=== PATIENT | female | born 1955 | race Caucasian/White ===

== ENCOUNTER 2020-06-02 17:55 | Inpatient (IN) ==
[2020-06-02 18:37] LABS: Basophils % 0.7 %; Eosinophils # 0.2 K/mcL (0.0-0.6); Eosinophils % 5.7 %; Hematocrit 36.9 % (35.3-44.9); Hemoglobin 12.3 g/dL (11.5-15.4); Mean Corpuscular HGB Conc 33.3 g/dL (31.6-35.5); Mean Corpuscular Hemoglobin 32.3 pg (28.0-33.3); Mean Corpuscular Volume 96.9 fL (83.0-100.0); Mean Platelet Volume 11.8 fL (9.4-12.4); Monocytes # 0.4 K/mcL (0.0-1.3); Monocytes % 9.6 %; Neutrophils # 2.6 K/mcL (1.6-8.9); Platelet Count 160 K/mcL (140-400); Red Blood Count 3.81 M/mcL (3.82-4.97); Red Cell Distribution Width 12.7 % (11.5-14.5); White Blood Count 4.2 K/mcL (4.3-11.1)
[2020-06-02 18:57] LABS: BUN/Creatinine Ratio 19 (6-26); Blood Urea Nitrogen 17 mg/dL (8-23); Calcium 9.7 mg/dL (8.6-10.3); Carbon Dioxide 22 mEq/L (23-29); Chloride 103 mEq/L (98-107); Glucose 111 mg/dL (70-105); Osmolality,Calculated 282 (280-300); Potassium 3.7 mEq/L (3.5-5.1); Sodium 135 mEq/L (136-145); Troponin I < 0.03 ng/mL (< 0.04); eGFR For African Americans > 60 (> 60); eGFR For Non-African Americans > 60 (> 60)
[2020-06-02] MEDS ORDERED: Isovue-370 500 ML BOTTLE IVP ONE (19:58)
[2020-06-02] MEDS ORDERED: *HR* FentaNYL (PF) 100 MCG/2 ML VIAL IVP ONE (20:17)
[2020-06-02] MEDS ORDERED: cefTRIAXone 1,000 MG in Water for inj. (sterile) 10 ML IVP ONE (21:09)
[2020-06-02] MEDS ORDERED: Azithromycin 500 MG in 0.9 % Sodium Chloride 250 ML IVPB ONE (21:09)
[2020-06-02 21:46] LABS: INR 1.1; Prothrombin Time 12.3 Seconds (9.4-12.1)
[2020-06-02 21:49] LABS: Activated Partial Thrombo Time 38.6 Seconds (26.0-36.0)
[2020-06-02 21:53] LABS: Alanine Aminotransferase 8 Units/L (7-52); Albumin 4.2 g/dL (3.5-5.7); Albumin/Globulin Ratio 1.2 (1.1-2.2); Alkaline Phosphatase 123 Units/L (34-104); Aspartate Amino Transferase 17 Units/L (13-39); Bilirubin,Direct 0.1 mg/dL (0.0-0.2); Bilirubin,Indirect 0.5 mg/dL (0.0-1.0); Bilirubin,Total 0.6 mg/dL (0.3-1.0); Globulin 3.5 g/dL (2.4-3.5); Total Protein 7.7 g/dL (6.4-8.9)
[2020-06-02] MEDS ORDERED: Naloxone 0.4 MG/ML INJ IVP PRN (22:32)
[2020-06-02] MEDS ORDERED: *HR* Promethazine 25 MG/ML VIAL IVP PRN (22:32)
[2020-06-02] MEDS: 0.9 % Sodium Chloride 1,000 ML IVC SCH (23:25)
[2020-06-02] MEDS ORDERED: Ipratropium/Albuterol Neb 3 ML IH PRN (23:35)
[2020-06-02] MEDS ORDERED: Azithromycin 500 MG in 0.9 % Sodium Chloride 250 ML IVPB SCH (23:45)
[2020-06-03 00:46] LABS: Adenovirus Not Detected (Not Detect); Bordetella Pertussis Not Detected (Not Detect); Chlamydophila pneumoniae Not Detected (Not Detect); Coronavirus 229E Not Detected (Not Detect); Coronavirus HKU1 Not Detected (Not Detect); Coronavirus NL63 Not Detected (Not Detect); Coronavirus OC43 Not Detected (Not Detect); Human Metapneumovirus Not Detected (Not Detect); Human Rhinovirus/Enterovirus Not Detected (Not Detect); Influenza A Subtype 2009 H1 Not Detected (Not Detect); Influenza B Not Detected (Not Detect); Mycoplasma pneumoniae Not Detected (Not Detect); Parainfluenza Virus 1 Not Detected (Not Detect); Parainfluenza Virus 2 Not Detected (Not Detect); Parainfluenza Virus 3 Not Detected (Not Detect); Parainfluenza Virus 4 Not Detected (Not Detect); Respiratory Syncytial Virus Not Detected (Not Detect)
[2020-06-03 03:36] LABS: INR 1.1; Prothrombin Time 12.5 Seconds (9.4-12.1)
[2020-06-03 03:38] LABS: Eosinophils # 0.3 K/mcL (0.0-0.6); Eosinophils % 8.7 %; Hematocrit 32.8 % (35.3-44.9); Hemoglobin 10.9 g/dL (11.5-15.4); Immature Granulocytes % 0.3 % (0-4); Lymphocytes # 0.8 K/mcL (0.6-4.6); Lymphocytes % 25.6 %; Mean Corpuscular HGB Conc 33.2 g/dL (31.6-35.5); Mean Corpuscular Hemoglobin 32.2 pg (28.0-33.3); Mean Corpuscular Volume 96.8 fL (83.0-100.0); Mean Platelet Volume 11.1 fL (9.4-12.4); Monocytes # 0.4 K/mcL (0.0-1.3); Monocytes % 11.5 %; Neutrophils # 1.7 K/mcL (1.6-8.9); Platelet Count 149 K/mcL (140-400); Red Blood Count 3.39 M/mcL (3.82-4.97); Red Cell Distribution Width 12.6 % (11.5-14.5); Segmented Neutrophils % 52.9 %; White Blood Count 3.1 K/mcL (4.3-11.1)
[2020-06-03 03:45] LABS: BUN/Creatinine Ratio 17 (6-26); Blood Urea Nitrogen 16 mg/dL (8-23); Calcium 8.8 mg/dL (8.6-10.3); Carbon Dioxide 22 mEq/L (23-29); Chloride 107 mEq/L (98-107); Glucose 82 mg/dL (70-105); Osmolality,Calculated 284 (280-300); Phosphorous 3.8 mg/dL (2.7-4.5); Potassium 4.1 mEq/L (3.5-5.1); Sodium 137 mEq/L (136-145); eGFR For African Americans > 60 (> 60); eGFR For Non-African Americans > 60 (> 60)
[2020-06-03] MEDS: Acetaminophen 325 MG TABLET PO PRN ×2 (04:32→15:15)
[2020-06-03] MEDS: cefTRIAXone 1,000 MG in 0.9 % Sodium Chloride Mini Bag 100 ML IVPB SCH (09:45)
[2020-06-03] MEDS: 0.9 % Sodium Chloride 1,000 ML IVC SCH (09:46)
[2020-06-03] MEDS ORDERED: Lidocaine -MPF 2% 2 ML VIAL ONE (11:51)
[2020-06-03] MEDS ORDERED: *HR* Succinylcholine 200 MG/10 ML VIAL IVP ONE (11:51)
[2020-06-03] MEDS ORDERED: Dexamethasone 4 MG/ML VIAL ONE (11:51)
[2020-06-03] MEDS ORDERED: Ondansetron 4 MG/2 ML VIAL ONE ×2 (11:51→12:17)
[2020-06-03] MEDS ORDERED: *HR* Rocuronium Bromide 50 MG/5 ML VIAL ONE (11:51)
[2020-06-03] MEDS ORDERED: *HR* FentaNYL (PF) 100 MCG/2 ML VIAL ONE (11:51)
[2020-06-03] MEDS ORDERED: *HR* Propofol 200 MG/20 ML VIAL IVP ONE (11:52)
[2020-06-03] MEDS ORDERED: *HR* HYDROmorphone (PF) 1 MG/ML SYRINGE IVP PRN (12:04)
[2020-06-03] MEDS ORDERED: *HR* OxyCODONE Immed Rel 5 MG TABLET PO PRN (12:04)
[2020-06-03] MEDS ORDERED: Ondansetron 4 MG/2 ML VIAL IVP ONE (12:04)
[2020-06-03] MEDS ORDERED: *HR* PHENYLEPHRINE 1,000 MCG/10 ML SYRINGE IVP ONE (12:43)
[2020-06-03] MEDS ORDERED: Lactulose Oral Soln 20 GM/30 ML UDC PO SCH (15:00)
[2020-06-03] MEDS: predniSONE 20 MG TABLET PO SCH (16:16)
[2020-06-03 17:10] LABS: Appearance of Body Fluid Clear (Clear); Volume of Body Fluid 20 mL
[2020-06-03] MEDS: Budesonide/Formoterol 160/4.5 1 PUFF INH IH SCH (19:46)
[2020-06-03] MEDS ORDERED: ALPRAZolam 0.5 MG TABLET PO SCH (21:00)
[2020-06-03] MEDS ORDERED: Famotidine 20 MG TABLET PO SCH (21:00)
[2020-06-03] MEDS ORDERED: QUEtiapine Fumarate 25 MG TABLET PO SCH (21:00)
[2020-06-04 05:59] LABS: Mean Corpuscular Volume 98.3 fL (83.0-100.0)
[2020-06-04 06:01] LABS: Hematocrit 34.8 % (35.3-44.9); Hemoglobin 11.5 g/dL (11.5-15.4); Immature Platelets 11.2 % (1.1-6.1); Mean Corpuscular Hemoglobin 32.5 pg (28.0-33.3); Mean Platelet Volume 11.6 fL (9.4-12.4); Red Blood Count 3.54 M/mcL (3.82-4.97); Red Cell Distribution Width 12.3 % (11.5-14.5); White Blood Count 5.9 K/mcL (4.3-11.1)
[2020-06-04 06:21] LABS: BUN/Creatinine Ratio 13 (6-26); Blood Urea Nitrogen 12 mg/dL (8-23); Calcium 9.5 mg/dL (8.6-10.3); Carbon Dioxide 22 mEq/L (23-29); Chloride 106 mEq/L (98-107); Glucose 117 mg/dL (70-105); Osmolality,Calculated 283 (280-300); Potassium 4.1 mEq/L (3.5-5.1); Sodium 136 mEq/L (136-145); eGFR For African Americans > 60 (> 60); eGFR For Non-African Americans > 60 (> 60)
[2020-06-04 07:06] VITALS: BP 104/55
[2020-06-04] MEDS: predniSONE 20 MG TABLET PO SCH (07:22)
[2020-06-04] MEDS: cefTRIAXone 1,000 MG in 0.9 % Sodium Chloride Mini Bag 100 ML IVPB SCH (07:23)
[2020-06-04] MEDS: Budesonide/Formoterol 160/4.5 1 PUFF INH IH SCH (07:31)
[2020-06-04] MEDS ORDERED: Aspirin Enteric Coated 81 MG Tablet PO SCH (09:00)
[2020-06-04] MEDS ORDERED: Venlafaxine XR (24 HR) 37.5 MG CAP.ER.24H PO SCH (09:00)
== END 2020-06-04 10:47 | disposition home or self-care (01) | DRG 853 ==
LOC: EMEROOARM 17:55 → 2ANU 17:55 → SUATTDRO 21:53 → 2ANU 22:25
PROVIDERS: ADMIT Student in an Organized Health Care Education/Training Program; ATTEND Internal Medicine

== ENCOUNTER 2020-08-18 16:49 | Inpatient (IN) ==
[2020-08-18] MEDS ORDERED: *HR* HYDROcodone/Acet 5/325 mg TABLET PO PRN (16:59)
[2020-08-18] MEDS ORDERED: Ondansetron 4 MG/2 ML VIAL IVP PRN (16:59)
[2020-08-18] MEDS: 0.9 % Sodium Chloride 1,000 ML IVC SCH (19:40)
[2020-08-18] MEDS: Ipratropium/Albuterol Neb 3 ML IH SCH (20:31)
[2020-08-18] MEDS: Gabapentin 300 MG CAPSULE PO SCH (21:17)
[2020-08-18] MEDS: Famotidine 20 MG TABLET PO SCH (21:17)
[2020-08-18] MEDS: ALPRAZolam 0.25 MG TABLET PO PRN (21:17)
[2020-08-18] MEDS: Sennosides/Docusate Sodium TABLET PO SCH (21:17)
[2020-08-18] MEDS: *HR* Heparin 5,000 UNIT/ML VIAL SQ SCH (21:20)
[2020-08-19] MEDS: Ipratropium/Albuterol Neb 3 ML IH SCH ×7 (00:17→23:38)
[2020-08-19] MEDS: ALPRAZolam 0.25 MG TABLET PO PRN ×2 (05:34→18:01)
[2020-08-19] MEDS: *HR* Heparin 5,000 UNIT/ML VIAL SQ SCH ×2 (05:34→21:22)
[2020-08-19] MEDS: Gabapentin 300 MG CAPSULE PO SCH ×3 (08:53→20:11)
[2020-08-19] MEDS: Sennosides/Docusate Sodium TABLET PO SCH ×2 (08:53→20:11)
[2020-08-19] MEDS: Famotidine 20 MG TABLET PO SCH ×2 (08:53→20:11)
[2020-08-19] MEDS: 0.9 % Sodium Chloride 1,000 ML IVC SCH ×2 (08:53→18:02)
[2020-08-19] MEDS ORDERED: *HR* Norepinephrine 4 MG/4 ML VIAL IVC ONE (11:28)
[2020-08-19] MEDS ORDERED: Albumin Human 5% 12.5 GM/250 ML IV.SOLN ONE (11:28)
[2020-08-19] MEDS ORDERED: *HR* Vasopressin 20 UNIT/ML VIAL ONE (11:29)
[2020-08-19] MEDS ORDERED: D5% in Water 250 ML ONE (11:29)
[2020-08-19] MEDS ORDERED: *HR* Heparin 5,000 UNIT/ML VIAL ONE (11:33)
[2020-08-19] MEDS ORDERED: Lidocaine 1% 20 ML MDV ONE (11:33)
[2020-08-19] MEDS ORDERED: Lidocaine Jelly 6ml 1 APPL/6 ML JEL.PF.APP ONE (11:36)
[2020-08-19] MEDS ORDERED: Heparin 1,000 UNITS/500 mL 500 ML ONE (11:38)
[2020-08-19] MEDS ORDERED: EPINEPHrine 1 MG/ML VIAL ONE (11:38)
[2020-08-19] MEDS ORDERED: *HR* Succinylcholine 200 MG/10 ML VIAL IVP ONE (11:51)
[2020-08-19] MEDS ORDERED: *HR* FentaNYL (PF) 100 MCG/2 ML VIAL ONE (11:51)
[2020-08-19] MEDS ORDERED: Lidocaine -MPF 2% 2 ML VIAL ONE (11:51)
[2020-08-19] MEDS ORDERED: Ondansetron 4 MG/2 ML VIAL ONE (11:51)
[2020-08-19] MEDS ORDERED: *HR* Propofol 200 MG/20 ML VIAL IVP ONE ×2 (11:51→14:26)
[2020-08-19] MEDS ORDERED: *HR* Rocuronium Bromide 50 MG/5 ML VIAL ONE ×2 (11:51→14:14)
[2020-08-19] MEDS ORDERED: Dexamethasone 4 MG/ML VIAL ONE (11:51)
[2020-08-19] MEDS ORDERED: EPHEDrine 50 MG/ML VIAL ONE (11:57)
[2020-08-19] MEDS ORDERED: *HR* PHENYLEPHRINE 1,000 MCG/10 ML SYRINGE IVP ONE (11:58)
[2020-08-19] MEDS ORDERED: *HR* Midazolam HCl 2 MG/2 ML VIAL ONE (12:41)
[2020-08-19] MEDS ORDERED: *HR* HYDROMORPHONE 2 MG/ML VIAL ONE (13:53)
[2020-08-19] MEDS ORDERED: CeFAZolin Syr 2,000MG/20 ML 2,000 MG/20 ML SYRINGE IVPB ONE (13:54)
[2020-08-19] MEDS ORDERED: *HR* HYDROcodone/Acet 5/325 mg TABLET PO PRN (16:50)
[2020-08-19] MEDS ORDERED: Ondansetron 4 MG/2 ML VIAL IVP PRN (16:50)
[2020-08-19] MEDS: *HR* HYDROcodone/Acet 7.5/325 mg TABLET PO PRN (20:01)
[2020-08-19] MEDS ORDERED: Famotidine 20 MG TABLET PO SCH (21:00)
[2020-08-20] MEDS: *HR* HYDROcodone/Acet 7.5/325 mg TABLET PO PRN ×4 (00:04→20:27)
[2020-08-20 01:00] LABS: % Iron Saturation 10 % (15-50); BUN/Creatinine Ratio 15 (6-26); Blood Urea Nitrogen 12 mg/dL (8-23); Calcium 8.4 mg/dL (8.6-10.3); Carbon Dioxide 24 mEq/L (23-29); Chloride 104 mEq/L (98-107); Glucose 151 mg/dL (70-105); Iron 30 mcg/dL (50-170); Magnesium 1.7 mg/dL (1.6-2.6); Osmolality,Calculated 279 (280-300); Phosphorous 3.5 mg/dL (2.7-4.5); Potassium 4.3 mEq/L (3.5-5.1); Sodium 133 mEq/L (136-145); Transferrin 213 mg/dL (203-362); eGFR For African Americans > 60 (> 60); eGFR For Non-African Americans > 60 (> 60)
[2020-08-20] MEDS: Ipratropium/Albuterol Neb 3 ML IH SCH ×5 (03:37→20:11)
[2020-08-20 04:36] LABS: Hematocrit 32.2 % (35.3-44.9); Hemoglobin 10.4 g/dL (11.5-15.4); Mean Corpuscular HGB Conc 32.3 g/dL (31.6-35.5); Mean Corpuscular Hemoglobin 31.2 pg (28.0-33.3); Mean Corpuscular Volume 96.7 fL (83.0-100.0); Mean Platelet Volume 11.1 fL (9.4-12.4); Platelet Count 174 K/mcL (140-400); Red Blood Count 3.33 M/mcL (3.82-4.97); Red Cell Distribution Width 12.1 % (11.5-14.5)
[2020-08-20] MEDS: *HR* Heparin 5,000 UNIT/ML VIAL SQ SCH ×3 (05:45→20:30)
[2020-08-20] MEDS ORDERED: 0.9 % Sodium Chloride 1,000 ML IVC SCH (07:59)
[2020-08-20] MEDS ORDERED: Iron Sucrose Complex 400 MG in 0.9 % Sodium Chloride 250 ML IVPB ONE (07:59)
[2020-08-20] MEDS: Gabapentin 300 MG CAPSULE PO SCH ×3 (08:59→20:28)
[2020-08-20] MEDS: Famotidine 20 MG TABLET PO SCH ×2 (09:00→20:29)
[2020-08-20] MEDS: Sennosides/Docusate Sodium TABLET PO SCH ×2 (09:00→20:29)
[2020-08-20] MEDS: ALPRAZolam 0.25 MG TABLET PO PRN ×2 (16:22→20:27)
[2020-08-20] MEDS ORDERED: polyethylene glycoL 3350 17 GM POWD.PACK PO SCH (19:00)
[2020-08-20] MEDS: 0.9 % Sodium Chloride 1,000 ML IVC SCH (19:27)
[2020-08-21] MEDS: Ipratropium/Albuterol Neb 3 ML IH SCH ×7 (00:34→20:29)
[2020-08-21] MEDS: *HR* HYDROcodone/Acet 7.5/325 mg TABLET PO PRN ×3 (00:38→14:56)
[2020-08-21 04:20] LABS: Hematocrit 29.8 % (35.3-44.9); Hemoglobin 9.7 g/dL (11.5-15.4); Mean Corpuscular HGB Conc 32.6 g/dL (31.6-35.5); Mean Corpuscular Volume 98.3 fL (83.0-100.0); Platelet Count 174 K/mcL (140-400); Red Blood Count 3.03 M/mcL (3.82-4.97); Red Cell Distribution Width 12.5 % (11.5-14.5); White Blood Count 4.5 K/mcL (4.3-11.1)
[2020-08-21 04:35] LABS: BUN/Creatinine Ratio 9 (6-26); Blood Urea Nitrogen 7 mg/dL (8-23); Calcium 8.6 mg/dL (8.6-10.3); Carbon Dioxide 25 mEq/L (23-29); Chloride 105 mEq/L (98-107); Glucose 110 mg/dL (70-105); Magnesium 2.2 mg/dL (1.6-2.6); Osmolality,Calculated 283 (280-300); Phosphorous 3.2 mg/dL (2.7-4.5); Potassium 4.2 mEq/L (3.5-5.1); Sodium 137 mEq/L (136-145); eGFR For African Americans > 60 (> 60); eGFR For Non-African Americans > 60 (> 60)
[2020-08-21] MEDS: *HR* Heparin 5,000 UNIT/ML VIAL SQ SCH ×3 (06:40→20:41)
[2020-08-21] MEDS ORDERED: ALPRAZolam 0.25 MG TABLET PO PRN (08:05)
[2020-08-21] MEDS ORDERED: Ondansetron 4 MG/2 ML VIAL IVP PRN (08:42)
[2020-08-21] MEDS ORDERED: Metoprolol XL (24 HR) Succ 25 MG TAB.ER.24H PO SCH (09:00)
[2020-08-21] MEDS: ALPRAZolam 0.5 MG TABLET PO PRN (09:58)
[2020-08-21] MEDS: Gabapentin 300 MG CAPSULE PO SCH ×3 (09:59→20:40)
[2020-08-21] MEDS: Sennosides/Docusate Sodium TABLET PO SCH ×2 (09:59→20:40)
[2020-08-21] MEDS: Famotidine 20 MG TABLET PO SCH ×2 (09:59→20:40)
[2020-08-21] MEDS: polyethylene glycoL 3350 17 GM POWD.PACK PO SCH (09:59)
[2020-08-21] MEDS ORDERED: Chloraseptic Spray 177 ML BOTTLE MM PRN (14:48)
[2020-08-22] MEDS: Ipratropium/Albuterol Neb 3 ML IH SCH ×7 (00:43→23:32)
[2020-08-22] MEDS: ALPRAZolam 0.5 MG TABLET PO PRN (01:04)
[2020-08-22] MEDS: *HR* HYDROcodone/Acet 7.5/325 mg TABLET PO PRN ×3 (01:05→20:05)
[2020-08-22 02:33] LABS: Hematocrit 28.7 % (35.3-44.9); Hemoglobin 9.1 g/dL (11.5-15.4); Mean Corpuscular HGB Conc 31.7 g/dL (31.6-35.5); Mean Corpuscular Hemoglobin 31.4 pg (28.0-33.3); Mean Platelet Volume 11.1 fL (9.4-12.4); Platelet Count 148 K/mcL (140-400); Red Cell Distribution Width 12.5 % (11.5-14.5); White Blood Count 3.3 K/mcL (4.3-11.1)
[2020-08-22 02:41] LABS: BUN/Creatinine Ratio 11 (6-26); Blood Urea Nitrogen 10 mg/dL (8-23); Calcium 8.8 mg/dL (8.6-10.3); Carbon Dioxide 26 mEq/L (23-29); Chloride 103 mEq/L (98-107); Glucose 117 mg/dL (70-105); Magnesium 1.9 mg/dL (1.6-2.6); Osmolality,Calculated 282 (280-300); Phosphorous 3.3 mg/dL (2.7-4.5); Sodium 136 mEq/L (136-145); eGFR For African Americans > 60 (> 60); eGFR For Non-African Americans > 60 (> 60)
[2020-08-22] MEDS: *HR* Heparin 5,000 UNIT/ML VIAL SQ SCH ×3 (05:33→20:07)
[2020-08-22] MEDS: Sennosides/Docusate Sodium TABLET PO SCH ×2 (07:34→20:05)
[2020-08-22] MEDS: Metoprolol XL (24 HR) Succ 25 MG TAB.ER.24H PO SCH (07:34)
[2020-08-22] MEDS: polyethylene glycoL 3350 17 GM POWD.PACK PO SCH (07:34)
[2020-08-22] MEDS: Gabapentin 300 MG CAPSULE PO SCH ×3 (07:34→20:06)
[2020-08-22] MEDS: Famotidine 20 MG TABLET PO SCH ×2 (07:34→20:04)
[2020-08-23] MEDS: ALPRAZolam 0.5 MG TABLET PO PRN (00:28)
[2020-08-23] MEDS: *HR* HYDROcodone/Acet 7.5/325 mg TABLET PO PRN ×3 (02:52→15:29)
[2020-08-23] MEDS: Ipratropium/Albuterol Neb 3 ML IH SCH ×6 (04:00→23:56)
[2020-08-23 05:03] LABS: Hematocrit 31.5 % (35.3-44.9); Mean Corpuscular HGB Conc 31.7 g/dL (31.6-35.5); Mean Corpuscular Hemoglobin 31.6 pg (28.0-33.3); Mean Corpuscular Volume 99.7 fL (83.0-100.0); Mean Platelet Volume 11.1 fL (9.4-12.4); Platelet Count 179 K/mcL (140-400); Red Blood Count 3.16 M/mcL (3.82-4.97); Red Cell Distribution Width 12.6 % (11.5-14.5); White Blood Count 2.8 K/mcL (4.3-11.1)
[2020-08-23] MEDS: *HR* Heparin 5,000 UNIT/ML VIAL SQ SCH ×3 (05:04→19:26)
[2020-08-23 05:26] LABS: BUN/Creatinine Ratio 15 (6-26); Blood Urea Nitrogen 15 mg/dL (8-23); Calcium 9.2 mg/dL (8.6-10.3); Carbon Dioxide 27 mEq/L (23-29); Chloride 100 mEq/L (98-107); Glucose 111 mg/dL (70-105); Magnesium 1.8 mg/dL (1.6-2.6); Osmolality,Calculated 280 (280-300); Potassium 4.6 mEq/L (3.5-5.1); Sodium 134 mEq/L (136-145); eGFR For African Americans > 60 (> 60); eGFR For Non-African Americans 58 (> 60)
[2020-08-23] MEDS: polyethylene glycoL 3350 17 GM POWD.PACK PO SCH (07:25)
[2020-08-23] MEDS: Gabapentin 300 MG CAPSULE PO SCH ×3 (07:25→19:26)
[2020-08-23] MEDS: Metoprolol XL (24 HR) Succ 25 MG TAB.ER.24H PO SCH (07:25)
[2020-08-23] MEDS: Sennosides/Docusate Sodium TABLET PO SCH ×2 (07:25→19:28)
[2020-08-23] MEDS: Famotidine 20 MG TABLET PO SCH ×2 (07:26→19:26)
[2020-08-24] MEDS: Ipratropium/Albuterol Neb 3 ML IH SCH ×3 (03:47→11:22)
[2020-08-24 05:15] LABS: Hematocrit 31.9 % (35.3-44.9); Hemoglobin 9.9 g/dL (11.5-15.4); Mean Platelet Volume 10.6 fL (9.4-12.4); Platelet Count 182 K/mcL (140-400); Red Blood Count 3.19 M/mcL (3.82-4.97); Red Cell Distribution Width 12.7 % (11.5-14.5)
[2020-08-24 05:31] LABS: BUN/Creatinine Ratio 17 (6-26); Blood Urea Nitrogen 18 mg/dL (8-23); Calcium 9.5 mg/dL (8.6-10.3); Carbon Dioxide 27 mEq/L (23-29); Chloride 100 mEq/L (98-107); Glucose 120 mg/dL (70-105); Magnesium 1.9 mg/dL (1.6-2.6); Osmolality,Calculated 279 (280-300); Phosphorous 4.1 mg/dL (2.7-4.5); Potassium 4.6 mEq/L (3.5-5.1); Sodium 133 mEq/L (136-145); eGFR For African Americans > 60 (> 60); eGFR For Non-African Americans 54 (> 60)
[2020-08-24] MEDS: *HR* Heparin 5,000 UNIT/ML VIAL SQ SCH (05:54)
[2020-08-24] MEDS: *HR* HYDROcodone/Acet 7.5/325 mg TABLET PO PRN (05:55)
[2020-08-24] MEDS: Sennosides/Docusate Sodium TABLET PO SCH (07:56)
[2020-08-24] MEDS: ALPRAZolam 0.5 MG TABLET PO PRN (07:56)
[2020-08-24] MEDS: Metoprolol XL (24 HR) Succ 25 MG TAB.ER.24H PO SCH (07:56)
[2020-08-24] MEDS: Gabapentin 300 MG CAPSULE PO SCH (07:56)
[2020-08-24] MEDS: Famotidine 20 MG TABLET PO SCH (07:56)
[2020-08-24] MEDS: polyethylene glycoL 3350 17 GM POWD.PACK PO SCH (07:57)
[2020-08-24 10:31] VITALS: BP 108/66
== END 2020-08-24 13:26 | disposition home or self-care (01) | DRG 164 ==
LOC: 2NNU → ICNU 08-19 16:33 → EDSTATUS 08-20 11:30 → 2NNU 08-21 23:53
PROVIDERS: ADMIT Thoracic Surgery (Cardiothoracic Vascular Surgery); ATTEND Thoracic Surgery (Cardiothoracic Vascular Surgery)

== ENCOUNTER 2021-11-18 12:59 | Observation (INO) ==
[2021-11-18] MEDS ORDERED: Ipratropium/Albuterol Neb 3 ML IH ONE (13:41)
[2021-11-18] MEDS ORDERED: Azithromycin 500 MG in 0.9 % Sodium Chloride 250 ML IVPB ONE (13:44)
[2021-11-18] MEDS ORDERED: cefTRIAXone 1,000 MG in 0.9 % Sodium Chloride Mini Bag 100 ML IVPB ONE (13:44)
[2021-11-18 14:31] LABS: Basophils % 0.4 %; Immature Granulocytes % 0.4 % (0-4)
[2021-11-18 14:33] LABS: Immature Platelets 12.1 % (1.1-6.1)
[2021-11-18 14:35] LABS: Eosinophils # 0.2 K/mcL (0.0-0.6); Eosinophils % 6.4 %; Hematocrit 38.3 % (35.3-44.9); Hemoglobin 12.7 g/dL (11.5-15.4); Lymphocytes # 0.5 K/mcL (0.6-4.6); Lymphocytes % 19.5 %; Mean Corpuscular HGB Conc 33.2 g/dL (31.6-35.5); Mean Corpuscular Hemoglobin 33.9 pg (28.0-33.3); Mean Corpuscular Volume 102.1 fL (83.0-100.0); Mean Platelet Volume 11.7 fL (9.4-12.4); Monocytes # 0.2 K/mcL (0.0-1.3); Monocytes % 8.8 %; Neutrophils # 1.6 K/mcL (1.6-8.9); Platelet Count 114 K/mcL (140-400); Red Blood Count 3.75 M/mcL (3.82-4.97); Segmented Neutrophils % 64.5 %; White Blood Count 2.5 K/mcL (4.3-11.1)
[2021-11-18 14:41] LABS: BUN/Creatinine Ratio 10 (6-26); Blood Urea Nitrogen 11 mg/dL (8-23); Calcium 8.8 mg/dL (8.6-10.3); Carbon Dioxide 24 mEq/L (23-29); Chloride 104 mEq/L (98-107); Glucose 82 mg/dL (70-105); Osmolality,Calculated 278 (280-300); Potassium 4.4 mEq/L (3.5-5.1); Sodium 135 mEq/L (136-145); eGFR For African Americans > 60 (> 60); eGFR For Non-African Americans 50 (> 60)
[2021-11-18 14:42] LABS: Troponin I < 0.03 ng/mL (< 0.04)
[2021-11-18 14:55] LABS: Large Platelets Present (Not Present); Platelet Estimate Slight Decrease (Normal)
[2021-11-18] MEDS ORDERED: Ondansetron 4 MG/2 ML VIAL IVP ONE (15:09)
[2021-11-18] MEDS ORDERED: *HR* FentaNYL (PF) 100 MCG/2 ML VIAL IVP ONE (15:09)
[2021-11-18 15:18] LABS: Influenza A PCR Negative (Negative); Influenza B PCR Negative (Negative); Resp. Syncytial Virus PCR Negative (Negative)
[2021-11-18 15:19] LABS: SARS-CoV-2 by PCR (In House) Positive (Negative)
[2021-11-18] MEDS ORDERED: Acetaminophen 325 MG TABLET PO PRN (17:18)
[2021-11-18] MEDS ORDERED: Naloxone 0.4 MG/ML INJ IVP PRN (17:18)
[2021-11-18] MEDS ORDERED: *HR* OxyCODONE/APAP 10/325 TABLET PO PRN (18:13)
[2021-11-18] MEDS ORDERED: ALPRAZolam 1 MG TABLET PO PRN (18:13)
[2021-11-18] MEDS: Ipratropium 1 PUFF INHALER IH SCH (20:04)
[2021-11-18] MEDS ORDERED: QUEtiapine Fumarate 25 MG TABLET PO PRN (21:00)
[2021-11-18] MEDS: Gabapentin 300 MG CAPSULE PO SCH (21:32)
[2021-11-19 01:45] LABS: BUN/Creatinine Ratio 13 (6-26); Blood Urea Nitrogen 13 mg/dL (8-23); Calcium 8.5 mg/dL (8.6-10.3); Carbon Dioxide 23 mEq/L (23-29); Chloride 105 mEq/L (98-107); Glucose 141 mg/dL (70-105); Osmolality,Calculated 278 (280-300); Potassium 4.1 mEq/L (3.5-5.1); Sodium 133 mEq/L (136-145); eGFR For African Americans > 60 (> 60); eGFR For Non-African Americans 57 (> 60)
[2021-11-19 02:21] LABS: Hematocrit 34.2 % (35.3-44.9); Hemoglobin 11.4 g/dL (11.5-15.4); Immature Platelets 11.1 % (1.1-6.1); Lymphocytes # 0.2 K/mcL (0.6-4.6); Lymphocytes % 25.7 %; Mean Corpuscular HGB Conc 33.3 g/dL (31.6-35.5); Mean Corpuscular Volume 102.1 fL (83.0-100.0); Mean Platelet Volume 11.7 fL (9.4-12.4); Monocytes % 5.4 %; Neutrophils # 0.5 K/mcL (1.6-8.9); Red Blood Count 3.35 M/mcL (3.82-4.97); Red Cell Distribution Width 12.7 % (11.5-14.5); Segmented Neutrophils % 68.9 %
[2021-11-19 02:47] LABS: Platelet Count 90 K/mcL (140-400); White Blood Count 0.7 K/mcL (4.3-11.1)
[2021-11-19] MEDS: Ipratropium 1 PUFF INHALER IH SCH ×2 (04:29→07:30)
[2021-11-19 04:54] LABS: Large Platelets Present (Not Present); Platelet Clumps Few (Not Present); Platelet Estimate Decreased (Normal)
[2021-11-19] MEDS ORDERED: *HR* Enoxaparin 30 MG/0.3 ML SYRINGE SQ SCH (06:00)
[2021-11-19] MEDS ORDERED: Aspirin Enteric Coated 81 MG Tablet PO SCH (09:00)
[2021-11-19] MEDS: Gabapentin 300 MG CAPSULE PO SCH (09:46)
[2021-11-19 11:17] VITALS: BP 96/61; PULSE 71; TEMP 98.3; O2SAT 95
[2021-11-19] MEDS ORDERED: Azithromycin 500 MG in 0.9 % Sodium Chloride 250 ML IVPB SCH (13:00)
[2021-11-20] MEDS ORDERED: *HR* Enoxaparin 40 MG/0.4 ML SYRINGE SQ SCH (09:00)
== END 2021-11-19 13:55 | disposition home or self-care (01) ==
LOC: 3BNU 12:59 → EMEROOARM 12:59 → SUATTDRO 16:41 → 3BNU 17:54
PROVIDERS: ADMIT Internal Medicine; ATTEND Internal Medicine

== ENCOUNTER 2022-05-13 00:12 | Observation (INO) ==
[2022-05-13] MEDS ORDERED: Iopamidol - 370 500 ML MLS IVP ONE (01:06)
[2022-05-13] MEDS ORDERED: Ketorolac 30 MG/ML VIAL IVP ONE (01:07)
[2022-05-13 01:09] LABS: Basophils % 0.7 %; Eosinophils # 0.1 K/mcL (0.0-0.6); Eosinophils % 1.7 %; Hematocrit 36.2 % (35.3-44.9); Hemoglobin 11.9 g/dL (11.5-15.4); Immature Granulocytes % 0.2 % (0-4); Lymphocytes # 0.6 K/mcL (0.6-4.6); Lymphocytes % 10.3 %; Mean Corpuscular HGB Conc 32.9 g/dL (31.6-35.5); Mean Corpuscular Hemoglobin 32.9 pg (28.0-33.3); Mean Platelet Volume 11.2 fL (9.4-12.4); Monocytes # 0.4 K/mcL (0.0-1.3); Monocytes % 7.7 %; Neutrophils # 4.2 K/mcL (1.6-8.9); Platelet Count 235 K/mcL (140-400); Red Blood Count 3.62 M/mcL (3.82-4.97); Red Cell Distribution Width 13.5 % (11.5-14.5); Segmented Neutrophils % 79.4 %; White Blood Count 5.3 K/mcL (4.3-11.1)
[2022-05-13 01:28] LABS: Alanine Aminotransferase 7 Units/L (7-52); Albumin 3.7 g/dL (3.5-5.7); Albumin/Globulin Ratio 0.9 (1.1-2.2); Alkaline Phosphatase 129 Units/L (34-104); Aspartate Amino Transferase 15 Units/L (13-39); BUN/Creatinine Ratio 12 (6-26); Bilirubin,Direct 0.1 mg/dL (0.0-0.2); Bilirubin,Indirect 0.5 mg/dL (0.0-1.0); Bilirubin,Total 0.6 mg/dL (0.3-1.0); Blood Urea Nitrogen 11 mg/dL (8-23); Calcium 9.3 mg/dL (8.6-10.3); Carbon Dioxide 26 mEq/L (23-29); Chloride 98 mEq/L (98-107); Globulin 4.1 g/dL (2.4-3.5); Glucose 110 mg/dL (70-105); Osmolality,Calculated 276 (280-300); Potassium 4.1 mEq/L (3.5-5.1); Sodium 133 mEq/L (136-145); Total Protein 7.8 g/dL (6.4-8.9); eGFR For African Americans > 60 (> 60); eGFR For Non-African Americans > 60 (> 60)
[2022-05-13 01:33] LABS: Troponin I 0.04 ng/mL (< 0.04)
[2022-05-13 01:46] LABS: Influenza A PCR Negative (Negative); Influenza B PCR Negative (Negative); Resp. Syncytial Virus PCR Negative (Negative)
[2022-05-13 01:47] LABS: SARS-CoV-2 by PCR (In House) Negative (Negative)
[2022-05-13] MEDS ORDERED: *HR* HYDROmorphone (PF) 1 MG/ML SYRINGE IVP ONE (03:15)
[2022-05-13] MEDS ORDERED: Aspirin 325 MG TABLET PO ONE (03:27)
[2022-05-13] MEDS ORDERED: Nitroglycerin 0.4 MG TAB.SUBL SL PRN (03:27)
[2022-05-13] MEDS ORDERED: Naloxone 0.4 MG/ML INJ IVP PRN (04:54)
[2022-05-13] MEDS ORDERED: Ipratropium/Albuterol Neb 3 ML IH PRN (04:59)
[2022-05-13 06:06] LABS: Basophils % 0.8 %; Eosinophils # 0.1 K/mcL (0.0-0.6); Eosinophils % 1.9 %; Hematocrit 35.2 % (35.3-44.9); Hemoglobin 11.4 g/dL (11.5-15.4); Immature Granulocytes % 0.2 % (0-4); Lymphocytes # 0.7 K/mcL (0.6-4.6); Lymphocytes % 15.7 %; Mean Corpuscular HGB Conc 32.4 g/dL (31.6-35.5); Mean Corpuscular Hemoglobin 32.4 pg (28.0-33.3); Mean Platelet Volume 11.6 fL (9.4-12.4); Monocytes # 0.4 K/mcL (0.0-1.3); Monocytes % 8.9 %; Neutrophils # 3.4 K/mcL (1.6-8.9); Platelet Count 201 K/mcL (140-400); Red Blood Count 3.52 M/mcL (3.82-4.97); Red Cell Distribution Width 13.6 % (11.5-14.5); Segmented Neutrophils % 72.5 %; White Blood Count 4.7 K/mcL (4.3-11.1)
[2022-05-13] MEDS: Ondansetron 4 MG/2 ML VIAL IVP PRN ×2 (06:12→17:15)
[2022-05-13 06:16] LABS: INR 1.1; Prothrombin Time 12.8 Seconds (9.4-12.1)
[2022-05-13 06:35] LABS: BUN/Creatinine Ratio 14 (6-26); Blood Urea Nitrogen 13 mg/dL (8-23); Calcium 9.4 mg/dL (8.6-10.3); Carbon Dioxide 24 mEq/L (23-29); Chloride 97 mEq/L (98-107); Chol/HDL Ratio 4.5 (0-4.9); Cholesterol 184 mg/dL (< 200); Glucose 105 mg/dL (70-105); HDL Cholesterol 41 mg/dL (40-59); LDL Cholesterol,Calculated 117 mg/dL (< 100); Osmolality,Calculated 274 (280-300); Phosphorous 3.6 mg/dL (2.7-4.5); Potassium 4.2 mEq/L (3.5-5.1); Sodium 132 mEq/L (136-145); Triglycerides 132 mg/dL (< 150); eGFR For African Americans > 60 (> 60); eGFR For Non-African Americans > 60 (> 60)
[2022-05-13 06:40] LABS: Thyroid Stimulating Hormone 3.552 mcIU/mL (0.340-5.600)
[2022-05-13 07:05] LABS: Estimated Average Glucose 111 mg/dl; Hemoglobin A1C 5.5 %
[2022-05-13] MEDS ORDERED: Furosemide 20 MG/2 ML VIAL IVP ONE (09:00)
[2022-05-13] MEDS: *HR* Enoxaparin 30 MG/0.3 ML SYRINGE SQ SCH (09:16)
[2022-05-13] MEDS: *HR* HYDROmorphone (PF) 1 MG/ML SYRINGE IVP PRN ×2 (09:17→22:11)
[2022-05-13 14:25] LABS: Bilirubin,Urine Negative (Negative); Blood,Urine Negative (Negative); Clarity,Urine Clear (Clear); Color,Urine Colorless (Yellow); Glucose,Urine (UA) Normal (Normal); Ketones,Urine Negative (Negative); Leukocyte Esterase,Urine Small (Negative); Nitrite,Urine Negative (Negative); Protein,Urine Negative (Neg-Trace); RBC,Urine 0-3 per hpf (0-3); Specific Gravity,Urine 1.011 (1.010-1.025); Squamous Epithelial Cell,Urine Few per hpf (None-Few); Urobilinogen,Urine Normal (Normal)
[2022-05-14 02:52] LABS: Basophils # 0.1 K/mcL (0.0-0.2); Eosinophils # 0.2 K/mcL (0.0-0.6); Eosinophils % 3.1 %; Hemoglobin 11.5 g/dL (11.5-15.4); Immature Granulocytes % 0.2 % (0-4); Lymphocytes # 0.9 K/mcL (0.6-4.6); Lymphocytes % 19.1 %; Mean Corpuscular HGB Conc 32.9 g/dL (31.6-35.5); Mean Corpuscular Hemoglobin 32.7 pg (28.0-33.3); Mean Corpuscular Volume 99.4 fL (83.0-100.0); Mean Platelet Volume 11.7 fL (9.4-12.4); Monocytes # 0.5 K/mcL (0.0-1.3); Monocytes % 10.9 %; Neutrophils # 3.2 K/mcL (1.6-8.9); Platelet Count 248 K/mcL (140-400); Red Blood Count 3.52 M/mcL (3.82-4.97); Red Cell Distribution Width 13.6 % (11.5-14.5); Segmented Neutrophils % 65.7 %; White Blood Count 4.9 K/mcL (4.3-11.1)
[2022-05-14 03:10] LABS: Alanine Aminotransferase 7 Units/L (7-52); Albumin 3.6 g/dL (3.5-5.7); Albumin/Globulin Ratio 0.9 (1.1-2.2); Alkaline Phosphatase 119 Units/L (34-104); Aspartate Amino Transferase 15 Units/L (13-39); BUN/Creatinine Ratio 15 (6-26); Bilirubin,Total 0.5 mg/dL (0.3-1.0); Blood Urea Nitrogen 15 mg/dL (8-23); Calcium 9.5 mg/dL (8.6-10.3); Carbon Dioxide 30 mEq/L (23-29); Chloride 95 mEq/L (98-107); Globulin 4.1 g/dL (2.4-3.5); Glucose 91 mg/dL (70-105); Osmolality,Calculated 274 (280-300); Sodium 132 mEq/L (136-145); Total Protein 7.7 g/dL (6.4-8.9); eGFR For African Americans > 60 (> 60); eGFR For Non-African Americans 58 (> 60)
[2022-05-14] MEDS: *HR* Enoxaparin 30 MG/0.3 ML SYRINGE SQ SCH (07:08)
[2022-05-14] MEDS: *HR* HYDROmorphone (PF) 1 MG/ML SYRINGE IVP PRN (07:08)
[2022-05-14] MEDS ORDERED: Regadenoson 0.4 MG/5 ML SYRINGE IVP ONE (07:18)
[2022-05-14] MEDS: Ondansetron 4 MG/2 ML VIAL IVP PRN (11:36)
[2022-05-14] MEDS ORDERED: Fluticasone Propionate Nasal 50 MCG/SPRAY BOTTLE NS PRN (13:47)
[2022-05-14] MEDS ORDERED: Ipratropium/Albuterol Neb 3 ML IH PRN (13:47)
[2022-05-14] MEDS: ALPRAZolam 1 MG TABLET PO SCH (15:15)
[2022-05-14] MEDS: Gabapentin 300 MG CAPSULE PO SCH ×2 (15:15→22:38)
[2022-05-14] MEDS: *HR* OxyCODONE/APAP 5/325 TABLET PO PRN (15:21)
[2022-05-14] MEDS: Budesonide/Formoterol 160/4.5 1 PUFF INH IH SCH (20:39)
[2022-05-14] MEDS ORDERED: Albumin 25% 25gram/100mL 25 GM/100 ML IV.SOLN IVPB ONE (21:09)
[2022-05-15 03:38] LABS: Hematocrit 28.2 % (35.3-44.9); Mean Corpuscular Hemoglobin 33.1 pg (28.0-33.3); Mean Corpuscular Volume 100.4 fL (83.0-100.0); Mean Platelet Volume 11.6 fL (9.4-12.4); Platelet Count 189 K/mcL (140-400); Red Blood Count 2.81 M/mcL (3.82-4.97); Red Cell Distribution Width 13.5 % (11.5-14.5); White Blood Count 3.3 K/mcL (4.3-11.1)
[2022-05-15 03:54] LABS: Alanine Aminotransferase 6 Units/L (7-52); Albumin 3.9 g/dL (3.5-5.7); Albumin/Globulin Ratio 1.4 (1.1-2.2); Alkaline Phosphatase 94 Units/L (34-104); Aspartate Amino Transferase 13 Units/L (13-39); BUN/Creatinine Ratio 16 (6-26); Bilirubin,Total 0.4 mg/dL (0.3-1.0); Blood Urea Nitrogen 15 mg/dL (8-23); Calcium 8.7 mg/dL (8.6-10.3); Carbon Dioxide 28 mEq/L (23-29); Chloride 99 mEq/L (98-107); Globulin 2.8 g/dL (2.4-3.5); Glucose 115 mg/dL (70-105); Osmolality,Calculated 282 (280-300); Potassium 4.1 mEq/L (3.5-5.1); Sodium 135 mEq/L (136-145); Total Protein 6.7 g/dL (6.4-8.9); eGFR For African Americans > 60 (> 60); eGFR For Non-African Americans 60 (> 60)
[2022-05-15 03:55] LABS: Hemoglobin 9.3 g/dL (11.5-15.4)
[2022-05-15 06:40] VITALS: TEMP 98.8
[2022-05-15] MEDS ORDERED: Tiotropium 10 INH DOSE IH ONE (08:01)
[2022-05-15] MEDS: Budesonide/Formoterol 160/4.5 1 PUFF INH IH SCH (08:02)
[2022-05-15 08:05] VITALS: PULSE 92; O2SAT 100
[2022-05-15 08:13] VITALS: BP 110/72
[2022-05-15] MEDS: *HR* OxyCODONE/APAP 5/325 TABLET PO PRN ×2 (08:19→12:26)
[2022-05-15] MEDS: Gabapentin 300 MG CAPSULE PO SCH (08:19)
[2022-05-15] MEDS: Ondansetron 4 MG/2 ML VIAL IVP PRN (08:23)
[2022-05-15] MEDS: *HR* Enoxaparin 30 MG/0.3 ML SYRINGE SQ SCH (08:24)
[2022-05-15] MEDS ORDERED: Megestrol Acetate 400 MG/10 ML UDC PO SCH (09:00)
[2022-05-15] MEDS ORDERED: Aspirin 325 MG TABLET PO SCH (09:00)
[2022-05-15 09:36] LABS: Hematocrit 31.2 % (35.3-44.9); Hemoglobin 10.2 g/dL (11.5-15.4)
[2022-05-15] MEDS ORDERED: Tiotropium 10 INH DOSE IH SCH (10:00)
[2022-05-15] MEDS: ALPRAZolam 1 MG TABLET PO SCH (10:32)
== END 2022-05-15 12:45 | disposition home or self-care (01) ==
LOC: 2ANU 00:12 → EMEROOARM 00:12 → SUATTDRO 04:29 → 2ANU 04:57
PROVIDERS: ADMIT Internal Medicine; ATTEND Internal Medicine